=== PATIENT | female | born 1995 | race Two or more races ===

== ENCOUNTER 2019-08-10 21:57 | Emergency (ER) | payer MEDICAID, OTHER ==
[~2019-08-10] VITALS: Ht 165.1 cm; Wt 93.4 kg
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
[2019-08-10 22:58] LABS: BILIRUBIN,URINE NEGATIVE (NEG); COLOR,URINE YELLOW; NITRITE,URINE NEGATIVE (NEG); PROTEIN,URINE 30 mg/dL (NEG-TRACE)
[2019-08-10 23:02] LABS: CLARITY,URINE CLEAR
[2019-08-10 23:07] LABS: BACTERIA,URINE MANY /HPF (0-FEW); RBC,URINE 0 /HPF (0-2); SQUAMOUS EPITHELIAL CELL,UR MANY /LPF
[2019-08-10 23:55] VITALS: BP 114/64
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
== END 2019-08-10 23:55 | disposition home or self-care (01) ==
LOC: EEVIPCON 21:57 → ER 21:57
DX: O9A.312 Physical abuse complicating pregnancy, second trimester (principal); R10.9 Unspecified abdominal pain; Z3A.16 16 weeks gestation of pregnancy; Y04.8XXA Assault by other bodily force, initial encounter; Y93.89 Activity, other specified; Y92.89 Other specified places as the place of occurrence of the external cause; Y99.8 Other external cause status
CPT/HCPCS: 76805; 81001; 99285-25